=== PATIENT | male | born 2000 | race Caucasian/White ===

== ENCOUNTER 2020-05-11 20:40 | Emergency (ER) | payer BC, SELFPAY ==
[2020-05-11 21:10] VITALS: BP 122/71; PULSE 70; RESP 17; TEMP 36.6; O2SAT 100
--- NOTE | 2020-05-11 22:47 | ED.WOUNDLAC ---
HPI - Wound/Laceration General Chief Complaint: Wound/Laceration Stated Complaint: face lac Time Seen by Provider: 05/11/20 22:04 Source: patient Mode of arrival: ambulatory Limitations: no limitations History of Present Illness HPI narrative: This patient is a 19 year old male who presents for evaluation of a right cheek laceration. Patient reports 2 hours ago he was accidentally hit in the face while playing basketball. He denies LOC or eye pain. He is unsure of his last tetanus. Related Data Allergies Allergy/AdvReac Type Severity Reaction Status Date / Time No Known Allergies Allergy Verified 12/30/18 08:45 Review of Systems Review of Systems: All systems reviewed & are unremarkable except as noted in HPI and below Eyes: Eyes: Reports no additional eye complaints PMFSH Past Medical History Medical History (Updated 05/11/20 @ 23:30 by Eleni Mcrae MD) Patient denies medical problems Surgical History Surgical History (Updated 05/11/20 @ 22:52 by Eleni Mcrae MD) No significant past surgical history Social History Social History (Updated 05/11/20 @ 22:52 by Eleni Mcrae MD) Smoking status: Never smoker Gender identity (if verbalized by the patient): Male Exam Const: General: no acute distress and alert Orientation/consciousness: patient oriented x3 HENMT: Head: normocephalic and atraumatic Face and sinus: face symmetric Eyes: Pupils: Equal, round and reactive pupils present EOM: EOMs intact bilaterally Other: right lower periorbital ecchymosis Resp: Effort & Inspection: normal respiratory effort Skin: Other: right cheek laceration 2 cm linear Neuro: General: patient oriented x3 and moves all extremities Psych: Mental Status: mental status grossly normal Affect: normal affect Course Vital Signs Vital signs: Vital Signs Temperature 97.8 F 05/11/20 21:10 Pulse Rate 70 05/11/20 21:10 Respiratory Rate 17 05/11/20 21:10 Blood Pressure 122/71 05/11/20 21:10 Pulse Oximetry 100 05/11/20 21:10 Temperature 97.6 F 05/12/20 00:19 Pulse Rate 61 05/12/20 00:19 Respiratory Rate 18 05/12/20 00:19 Blood Pressure 119/78 05/12/20 00:19 Pulse Oximetry 98 05/12/20 00:19 Procedures Laceration Laceration 1: Date: 05/11/20 Time: 23:28 Site: face (right cheek) Side (If applicable): right Size (cm): 2 Description: linear Depth: simple, single layer Local Anesthetic: lidocaine 1% and with epi Amount of anesthesia used (mL): 1 Pre-repair: irrigated ====== Skin Level ====== Size (cm): 5-0 (fast absorbable gut) Number of sutures: 4 Technique: simple, interrupted ====== Subcutaneous Layer ====== ====== Muscle Layer ====== ====== Tendon Layer ====== Discharge Plan Discharge Clinical Impression: Laceration of cheek, right Qualifiers: Encounter type: initial encounter Qualified Code(s): S01.411A - Laceration without foreign body of right cheek and temporomandibular area, initial encounter Patient Disposition: Home, Self-Care Condition: Stable Instructions: Care For Your Absorbable Stitches (ED) Additional Instructions: Keep your wound clean with soap and water. Watch for signs of an infection. Follow-up/Referrals: Marlena Lynne MD [Primary Care Provider] -
[2020-05-11] MEDS: LIDO 1%/EPINEPHRINE 1:100,000 20 ML VIAL INFILTRATE (23:26)
[2020-05-11] MEDS: TETANUS,DIPHTHERIA,AC PERTUSSIS ADULT (0.5 ML) BOOSTRIX IM (23:29)
[2020-05-12 00:19] VITALS: BP 119/78; PULSE 61; RESP 18; TEMP 36.4; O2SAT 98
== END 2020-05-12 00:24 | disposition home or self-care (01) ==
PROVIDERS: Emergency Provider General Practice; PCP Pediatrics
DX: S01.411A Laceration without foreign body of right cheek and temporomandibular area, initial encounter (principal); W51.XXXA Accidental striking against or bumped into by another person, initial encounter; Z23 Encounter for immunization
CPT/HCPCS: 12011; 90471; 90715; 99282

== ENCOUNTER 2021-07-27 12:46 | Emergency (ER) | payer BC, SELFPAY ==
[2021-07-27 12:54] VITALS: BP 124/89; PULSE 70; RESP 16; TEMP 35.7; O2SAT 100
--- NOTE | 2021-07-27 14:21 | ED.URI ---
HPI - URI/Sore Throat General Chief Complaint: Upper Respiratory Infection Stated Complaint: SORE THROAT/[place]/COUGH Time Seen by Provider: 07/27/21 14:16 Source: patient and RN notes reviewed Mode of arrival: ambulatory Limitations: no limitations History of Present Illness HPI Narrative: Patient presents today with a 2-day history of sore throat, cough, and headache with rhinorrhea. Denies fever or congestion. Currently rates pain 4/10 and has been taking ibuprofen with some relief. Brother is sick with similar symptoms. MD elicited complaint: cough and sore throat Related Data Home Medications Medication Instructions Recorded Confirmed No Home Medications 12/29/20 07/27/21 Allergies Allergy/AdvReac Type Severity Reaction Status Date / Time No Known Allergies Allergy Verified 07/27/21 13:30 Review of Systems Review of Systems: CONSTITUTIONAL: Denies body aches, fever, chills, or sweats. EYES: Denies visual changes, redness, or discharge. ENT: Denies congestion, or otalgia.+ Sore throat, rhinorrhea CARDIOVASCULAR: Denies chest pain, palpitations, or edema. RESPIRATORY: Denies dyspnea.+ Cough GASTROINTESTINAL: Denies abdominal pain, nausea, vomiting, or diarrhea. GENITOURINARY: Denies dysuria or hematuria. SKIN: Denies rash, itching, or wounds. MUSCULOSKELETAL: Denies back pain, joint pain, or myalgia. NEUROLOGIC: Denies numbness, tingling, or weakness.+ Headache PSYCH: Denies depression or anxiety. PMFSH Past Medical History Medical History Migraine Patient denies medical problems Surgical History Surgical History No significant past surgical history Family History Family History Mother Hypertension Grandparent Diabetes mellitus Cancer Social History Social History Smoking status: Never smoker Second hand tobacco smoke exposure: No Alcohol intake: never Substance use: unknown Gender identity (if verbalized by the patient): Male Comments At time of signature, I have reviewed and agree with nursing past medical, surgical, social and family history unless otherwise noted. Please see nursing chart for further information. There is no relevant family history pertinent to the presenting complaint Exam Narrative: GENERAL: Well-appearing, well-nourished, and in no acute distress. HEAD: Normocephalic, atraumatic. EYES: EOMI. No redness or drainage. Conjunctivae normal. ENT: Mucous membranes pink and moist. Nares congested with rhinorrhea. TMs normal bilaterally. Throat normal. Uvula midline. NECK: Normal AROM. Supple. No lymphadenopathy. CHEST: No respiratory distress. Clear to auscultation. HEART: Regular rate and rhythm. No murmur appreciated. Normal peripheral pulses. EXTREMITIES: Normal range of motion. No edema. SKIN: Warm, dry, no rash. Capillary refill normal. Normal skin turgor. NEURO: No focal deficits. Alert and oriented x3. Gait steady. PSYCH: Normal affect. No signs of depression or anxiety. Course Vital Signs Vital signs: Vital Signs Temperature 96.2 F L 07/27/21 12:54 Pulse Rate 70 07/27/21 12:54 Respiratory Rate 16 07/27/21 12:54 Blood Pressure 124/89 07/27/21 12:54 Pulse Oximetry 100 07/27/21 12:54 Temperature 96.2 F L 07/27/21 12:54 Pulse Rate 70 07/27/21 12:54 Respiratory Rate 16 07/27/21 12:54 Blood Pressure 124/89 07/27/21 12:54 Pulse Oximetry 100 07/27/21 12:54 Reviewed. Pt has been instructed to follow up with his PCP regarding his elevated blood pressure today. MDM - URI/Sore Throat Differential Diagnosis Differential diagnosis: Likely upper respiratory infection, otitis media, viral infection, bronchitis, pharyngitis and other (Strep throat) Lab Data Attestation: I revie
== END 2021-07-27 14:25 | disposition home or self-care (01) ==
PROVIDERS: Emergency Provider Nurse Practitioner; PCP Internal Medicine
DX: J06.9 Acute upper respiratory infection, unspecified (principal)
CPT/HCPCS: 87081; 87880; 99213; G0463